=== PATIENT | female | born 2000 | race American Indian/Alaskan Native ===

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

== ENCOUNTER 2020-04-04 06:50 | Inpatient (IN) | payer MEDICAID ==
[2020-04-04] MEDS ORDERED: TERBUTALINE 1 MG/1 ML INJ SUB-Q PRN (07:58)
[2020-04-04] MEDS ORDERED: ONDANSETRON 4 MG/2 ML INJ IV PRN ×2 (07:58→10:29)
[2020-04-04] MEDS ORDERED: ePHEDrine SULFATE 50 MG/1 ML INJ IV PRN ×2 (07:58→10:29)
[2020-04-04] MEDS ORDERED: miSOPROStol 200 MCG TAB PR PRN (07:58)
[2020-04-04] MEDS ORDERED: fentaNYL 100 MCG/2 ML INJ IV PRN (07:58)
[2020-04-04] MEDS ORDERED: LIDOCAINE (2%) 20 MG/1 ML VIAL 20 ML MDV INFILTRATI ONE (07:58)
[2020-04-04] MEDS ORDERED: OXYTOCIN DRIP 30 UNITS/500 ML BAG IV SCH ×2 (08:00)
--- NOTE | 2020-04-04 08:06 | History and Physical Report ---
History of Present Illness Date of examination: 04/04/20 (pt arrived via EMS in active labor; OB care @ [facility]) Chief complaint: worsening contractions History of present illness: MARCELA signed and faxed to [facility]. Records pending. Per pt verbal report: JOSUE 04/08/2020 per U/S on 09/02/19 at [facility]. Pt reports last being seen at [facility] on 02/12/2020. Family Medical Hx- denies Personal Medical Hx- denies Significant other personal and family Hx- denies ETOH/smoking/drug abuse- denies HX STDs- denies Past History Past Medical History: no pertinent history - Obstetrical History Expected Date of Delivery: 04/08/20 Actual Gestation: 39 Week(s) 3 Day(s) : 1 Para: 0 Hx # Term Pregnancies: 0 Number of Pregnancies: 0 Spontaneous Abortions: 0 Induced : 0 Number of Living Children: 0 Medications and Allergies Allergies Allergy/AdvReac Type Severity Reaction Status Date / Time No Known Allergies Allergy Verified 02/28/19 17:45 Home Medications Medication Instructions Recorded Confirmed Last Taken Type No Known Home Medications [No 04/04/20 04/04/20 Unknown History Reported Home Medications] Active Meds: Active Medications Ephedrine Sulfate (Ephedrine Sulfate) 10 mg IV Q2M PRN PRN Reason: Hypotension Fentanyl (Sublimaze) 100 mcg IV Q2H PRN PRN Reason: Pain,Severe (7-10) LABOR PAIN Oxytocin/Sodium Chloride (Pitocin/Ns 30 Unit/500ml) 30 units in 500 mls @ 4 mls/hr IV TITR JESUS; Protocol Lactated Ringer's (Lactated Ringers) 1,000 mls @ 125 mls/hr IV DIRECT JESUS Oxytocin/Sodium Chloride (Pitocin/Ns 30 Unit/500ml) 30 units in 500 mls @ 40 ml s/hr IV TITR JESUS; Protocol Ampicillin Sodium (Ampicillin/Ns 1 Gm/50 Ml) 1 gm in 50 mls @ 100 mls/hr IV Q4HR JESUS; Protocol Ampicillin Sodium (Ampicillin/Ns 2 Gm/100 Ml) 2 gm in 100 mls @ 100 mls/hr IV ONCE ONE; Protocol Stop: 04/04/20 08:57 Lidocaine (Xylocaine 2%) 20 ml INFILTRATI ONCE ONE Stop: 04/04/20 07:59 Methylergonovine Maleate (Methergine) 0.2 mg IM ONCE PRN PRN Reason: Uterine Bleeding Misoprostol (Cytotec) 800 mcg WI ONCE PRN PRN Reason: Uterine Bleeding Ondansetron HCl (Zofran) 4 mg IV Q8H PRN PRN Reason: Nausea And Vomiting Oxytocin (Pitocin) 10 unit IM ONCE PRN PRN Reason: Uterine Bleeding Terbutaline Sulfate (Brethine) 0.25 mg SUB-Q ONCE PRN PRN Reason: Hyperstimulation/Hypertonicity Review of Systems All systems: negative - Vital Signs Vital signs: Vital Signs Temp Pulse Resp BP Pulse Ox 99.3 F 109 H 16 127/74 98 04/04/20 07:23 04/04/20 07:23 04/04/20 07:23 04/04/20 07:23 04/04/20 07:23 Temp Pulse Resp BP Pulse Ox 99.3 F 112 H 16 127/74 99 04/04/20 07:23 04/04/20 07:53 04/04/20 07:23 04/04/20 07:23 04/04/20 07:53 - Physical Exam Breasts: Positive: deferred Cardiovascular: Regular rate, Normal S1, Normal S2 Lungs: Positive: Clear to auscultation, Normal air movement Abdomen: Positive: normal appearance, soft, normal bowel sounds. Negative: distention, tenderness Genitourinary (Female): Positive: normal external genitalia, normal perenium Vulva: both: normal Vagina: Positive: normal moisture. Negative: discharge Cervix: Negative: lesion, discharge Uterus: Positive: normal size, normal contour Adnexa: both: normal Anus/Rectum: Positive: normal perianal skin, heme negative. Negative: rectal mass, hemorrhoids Extremities: Positive: normal Deep Tendon Reflex Grade: Normal +2 - Obstetrical FHR: auscultation normal, category 1 Uterine Contraction Monitor Mode: External Cervical Dilatation: 5 Cervical Effacement Percentage: 100 station: -1 Uterine Contraction Pattern: Regular Uterine Contraction Intensity: Moderate Results Result Diagrams: 04/04/20 07:58 All other labs normal. OB labs ordered, will treat for unknown GBS Assessment and Plan - Patient Problems (1) Insufficient care in third trimester Onset Date: ~04/04/20 Current Visit: Yes Status: Acute Plan to address problem: records requested from [facility]. all OB labs ordered. GBS status UNK, will tx per p rotocol. all orders in EMR. anticipate . Dr Lopez aware of admission (2) 39 weeks gestation of Onset Date: ~04/04/20 Current Visit: Yes Status: Acute
[2020-04-04] MEDS ORDERED: METHYLERGONOVINE MALEATE 0.2 MG/ML VIAL IM PRN (08:11)
[2020-04-04] MEDS ORDERED: OXYTOCIN 10 UNIT/1 ML INJ IM PRN (08:11)
[2020-04-04] MEDS ORDERED: AMPICILLIN/NS 2 GM/100 ML 2 GM/100 ML BAG IV ONE (08:30)
[2020-04-04 08:43] LABS: Hematocrit 35.8 % (30.3-42.9); Hemoglobin 11.5 gm/dl (10.1-14.3); Mean Corpuscular HGB Conc 32 % (30-34); Mean Corpuscular Volume 82 fl (79-97); Platelet Count 185 K/mm3 (140-440); Red Blood Count 4.38 M/mm3 (3.65-5.03); Red Cell Distribution Width 13.9 % (13.2-15.2)
[2020-04-04] MEDS: LACTATED RINGERS 1,000 ML IV SCH ×3 (09:12→16:50)
[2020-04-04] MEDS ORDERED: diphenhydrAMINE 50 MG/ML VIAL IV PRN (10:29)
[2020-04-04] MEDS ORDERED: NALOXONE 2 MG/2 ML INJ IV PRN (10:29)
[2020-04-04] MEDS ORDERED: NalbUPHINE 10 MG/1 ML INJ IV PRN (10:29)
--- NOTE | 2020-04-04 10:31 | Anesthesia Consultation ---
Anesthesia Consult and Med Hx Date of service: 04/04/20 - Airway Anesthetic Teeth Evaluation: Good ROM Head & Neck: Adequate Mental/Hyoid Distance: Adequate Mallampati Class: Class II Intubation Access Assessment: Probably Good - Pulmonary Exam CTA: Yes - Cardiac Exam Cardiac Exam: RRR - Pre-Operative Health Status ASA Pre-Surgery Classification: ASA2 Proposed Anesthetic Plan: Epidural - Pulmonary Hx Smoking: No Hx Asthma: No COPD: No Hx Pneumonia: No Hx Sleep Apnea: No - Cardiovascular System Hx Hypertension: No - Central Nervous System Hx Seizures: No Hx Psychiatric Problems: No - Gastrointestinal Hx Gastroesophageal Reflux Disease: No - Endocrine Hx Renal Disease: No Hx End Stage Renal Disease: No Hx Hypothyroidism: No Hx Hyperthyroidism: No - Hematic Hx Anemia: No Hx Sickle Cell Disease: No - Other Systems Hx Alcohol Use: No
--- NOTE | 2020-04-04 10:52 | Progress Note ---
Labor Epidural - Labor Epidural Start Time: 10:36 Stop Time: 10:47 Performed by:: ROLF CORMIER Procedure: Patient is requesting a laboring epidural for laboring pain. Patient IDed, H&P reviewed, all questions and concerns were answered, and consent was signed. Timeout was performed at bedside. Patient in sitting position. Sterile prep and drape was performed. 3ml of 1% lidocaine skin wheal at L[3]- L [4]. 18- gauge Touhy epidural needle was advanced to loss of resistance with air technique. Negative CSF negative blood. Epidural catheter advanced to [12] centimeters. [-] Aspiration [-] test dose. Sterile dressing applied. Patient tolerated procedure.
[2020-04-04] MEDS ORDERED: fentaNYL-BUPIV 2 MCG/ML-0.125% 200 MCG/100 ML BAG EPIDURAL SCH (11:00)
[2020-04-04] MEDS: AMPICILLIN/NS 1 GM/50 ML 1 GM/50 ML BAG IV SCH ×2 (12:13→15:53)
[2020-04-04 13:19] LABS: Hepatitis C Virus Antibody Non-Reactive (NonReactive)
--- NOTE | 2020-04-04 13:56 | Progress Note ---
Assessment and Plan pt resting comfortably s/p epidural, FHT's CAT 1. SVE 5/100/0, AROM no fluid seen, internal monitors placed, bloody show noted on exam, RN to start Pitocin as ordered per protocol, Dr. Lopez updated. anticipate - Patient Problems (1) Insufficient care in third trimester Onset Date: ~04/04/20 Current Visit: Yes Status: Acute Plan to address problem: records requested from [facility]. all OB labs ordered. GBS status UNK- will tx per protocol. all orders in EMR. anticipate . Dr Lopez aware of admission (2) 39 weeks gestation of Onset Date: ~04/04/20 Current Visit: Yes Status: Acute Subjective - Subjective Date of service: 04/04/20 Principal diagnosis: Active Labor @ 39.3 EGA, Insufficient Care Interval history: MARCELA signed and faxed to [facility]. Records pending. Per pt verbal report: JOSUE 04/08/2020 per U/S on 09/02/19 at [facility]. Pt reports last being seen at [facility] on 02/12/2020. Family Medical Hx- denies Personal Medical Hx- denies Significant other personal and family Hx- denies ETOH/smoking/drug abuse- denies HX STDs- denies Patient reports: no new complaints Objective - Vital Signs Vital Signs: Vital Signs - 12hr 04/04/20 04/04/20 04/04/20 07:23 07:28 07:33 Temperature 99.3 F Pulse Rate 109 H 119 H 103 H Respiratory 16 Rate Blood Pressure 127/74 Blood Pressure 127/74 [Left] O2 Sat by Pulse 98 99 99 Oximetry 04/04/20 04/04/20 04/04/20 07:38 07:43 07:48 Temperature Pulse Rate 112 H 102 H 108 H Respiratory Rate Blood Pressure Blood Pressure [Left] O2 Sat by Pulse 99 98 99 Oximetry 04/04/20 04/04/20 04/04/20 07:53 08:09 08:14 Temperature Pulse Rate 112 H 104 H 101 H Respiratory Rate Blood Pressure Blood Pressure [Left] O2 Sat by Pulse 99 99 99 Oximetry 04/04/20 04/04/20 04/04/20 08:19 08:24 08:29 Temperature Pulse Rate 101 H 94 H 96 H Respiratory Rate Blood Pressure Blood Pressure [Left] O2 Sat by Pulse 100 99 99 Oximetry 04/04/20 04/04/20 04/04/20 09:22 09:26 09:30 Temperature 98.9 F Pulse Rate 110 H 96 H Respiratory 16 Rate Blood Pressure 141/89 Blood Pressure [Left] O2 Sat by Pulse 99 Oximetry 04/04/20 04/04/20 04/04/20 09:37 09:42 09:47 Temperature Pulse Rate 116 H 101 H 105 H Respiratory Rate Blood Pressure Blood Pressure [Left] O2 Sat by Pulse 99 99 98 Oximetry 04/04/20 04/04/20 04/04/20 09:51 09:52 09:57 Temperature Pulse Rate 107 H 125 H 96 H Respiratory Rate Blood Pressure 136/84 Blood Pressure [Left] O2 Sat by Pulse 99 99 Oximetry 04/04/20 04/04/20 04/04/20 10:02 10:07 10:12 Temperature Pulse Rate 105 H 115 H 103 H Respiratory Rate Blood Pressure Blood Pressure [Left] O2 Sat by Pulse 99 99 99 Oximetry 04/04/20 04/04/20 04/04/20 10:17 10:33 10:38 Temperature Pulse Rate 113 H 118 H 113 H Respiratory Rate Blood Pressure Blood Pressure [Left] O2 Sat by Pulse 98 0 L 99 Oximetry 04/04/20 04/04/20 04/04/20 10:41 10:43 10:45 Temperature Pulse Rate 106 H 95 H 101 H Respiratory Rate Blood Pressure 138/73 134/78 126/71 Blood Pressure [Left] O2 Sat by Pulse 99 Oximetry 04/04/20 04/04/20 04/04/20 10:47 10:48 10:50 Temperature Pulse Rate 104 H 109 H 95 H Respiratory Rate Blood Pressure 127/69 138/79 Blood Pressure [Left] O2 Sat by Pulse 99 Oximetry 04/04/20 04/04/20 04/04/20 10:51 10:53 10:55 Temperature Pulse Rate 101 H 92 H 100 H Respiratory Rate Blood Pressure 136/78 130/65 135/63 Blood Pressure [Left] O2 Sat by Pulse 99 Oximetry 04/04/20 04/04/20 04/04/20 10:57 10:58 10:59 Temperature Pulse Rate 89 95 H 90 Respiratory Rate Blood Pressure 124/60 122/58 Blood Pressure [Left] O2 Sat by Pulse 99 Oximetry 04/04/20 04/04/20 04/04/20 11:01 11:03 11:05 Temperature Pulse Rate 90 93 H 93 H Respiratory Rate Blood Pressure 121/58 122/58 124/59 Blood Pressure [Left] O2 Sat by Pulse 99 Oximetry 04/04/20 04/04/20 04/04/20 11:07 11:08 11:09 Temperature Pulse Rate 90 93 H 90 Respiratory Rate Blood Pressure 116/57 119/61 Blood Pressure [Left] O2 Sat by Pulse 98 Oximetry 04/04/20 04/04/20 04/04/20 11:11 11:13 11:15 Temperature Pulse Rate 91 H 97 H 95 H Respiratory Rate Blood Pressure 116/57 115/57 119/58 Blood Pressure [Left] O2 Sat by Pulse 98 Oximetry 04/04/20 04/04/20 04/04/20 11:17 11:18 11:19 Temperature Pulse Rate 99 H 93 H 96 H Respiratory Rate Blood Pressure 115/57 119/59 Blood Pressure [Left] O2 Sat by Pulse 98 Oximetry 04/04/20 04/04/20 04/04/20 11:21 11:23 11:25 Temperature Pulse Rate 90 104 H 99 H Respiratory Rate Blood Pressure 119/59 110/55 113/55 Blood Pressure [Left] O2 Sat by Pulse 98 Oximetry 04/04/20 04/04/20 04/04/20 11:27 11:28 11:29 Temperature Pulse Rate 98 H 103 H 98 H Respiratory Rate Blood Pressure 114/57 123/60 Blood Pressure [Left] O2 Sat by Pulse 98 Oximetry 04/04/20 04/04/20 04/04/20 11:33 11:38 11:43 Temperature Pulse Rate 101 H 94 H 92 H Respiratory Rate Blood Pressure Blood Pressure [Left] O2 Sat by Pulse 98 98 100 Oximetry 04/04/20 04/04/20 04/04/20 11:48 11:53 11:58 Temperature Pulse Rate 86 87 91 H Respiratory Rate Blood Pressure Blood Pressure [Left] O2 Sat by Pulse 100 100 100 Oximetry 04/04/20 04/04/20 04/04/20 11:59 12:03 12:08 Temperature Pulse Rate 87 91 H 89 Respiratory Rate Blood Pressure 98/54 Blood Pressure [Left] O2 Sat by Pulse 100 100 Oximetry 04/04/20 04/04/20 04/04/20 12:13 12:17 12:18 Temperature Pulse Rate 96 H 89 94 H Respiratory Rate Blood Pressure 111/60 Blood Pressure [Left] O2 Sat by Pulse 100 100 Oximetry 04/04/20 04/04/20 04/04/20 12:23 12:28 12:30 Temperature 98.9 F Pulse Rate 95 H 96 H 89 Respiratory 14 Rate Blood Pressure 117/63 Blood Pressure [Left] O2 Sat by Pulse 100 100 Oximetry 04/04/20 04/04/20 04/04/20 12:33 12:38 12:43 Temperature Pulse Rate 91 H 96 H 100 H Respiratory Rate Blood Pressure Blood Pressure [Left] O2 Sat by Pulse 100 100 100 Oximetry 04/04/20 04/04/20 04/04/20 12:48 12:53 12:58 Temperature Pulse Rate 103 H 96 H 92 H Respiratory Rate Blood Pressure Blood Pressure [Left] O2 Sat by Pulse 100 100 100 Oximetry 04/04/20 04/04/20 04/04/20 13:01 13:03 13:08 Temperature Pulse Rate 96 H 95 H 103 H Respiratory Rate Blood Pressure 127/64 Blood Pressure [Left] O2 Sat by Pulse 100 100 Oximetry 04/04/20 04/04/20 04/04/20 13:13 13:18 13:23 Temperature Pulse Rate 92 H 93 H 99 H Respiratory Rate Blood Pressure Blood Pressure [Left] O2 Sat by Pulse 100 100 100 Oximetry 04/04/20 04/04/20 04/04/20 13:28 13:30 13:33 Temperature Pulse Rate 95 H 100 H 94 H Respiratory Rate Blood Pressure 132/73 Blood Pressure [Left] O2 Sat by Pulse 100 100 Oximetry 04/04/20 13:38 Temperature Pulse Rate 102 H Respiratory Rate Blood Pressure Blood Pressure [Left] O2 Sat by Pulse 100 Oximetry - Exam Cardiovascular: Regular rate Lungs: Normal air movement Abdomen: Present: normal appearance, soft. Absent: distention, tenderness Uterus: Present: normal FHR: auscultation normal Uterine Contraction Monitor Mode: Internal Cervical Dilatation: 5 Cervical Effacement Percentage: 100 station: -1 Uterine Contraction Pattern: Regular Extremities: normal - Labs Labs: Abnormal Labs 04/04/20 07:58 WBC 18.2 H MCH 26 L Laboratory Results - last 24 hr 04/04/20 04/04/20 04/04/20 07:58 08:10 Unknown WBC 18.2 H RBC 4.38 Hgb 11.5 Hct 35.8 MCV 82 MCH 26 L MCHC 32 RDW 13.9 Plt Count 185 Syphilis IgG Antibody Nonreactive Hep Bs Antigen Hepatitis C Antibody Non-reactive HIV 1&2 Antibody Rapid HIV P24 Antigen Rubella IgG Antibody Immune Blood Type B POSITIVE Antibody Screen Negative 04/04/20 04/04/20 Unknown Unknown WBC RBC Hgb Hct MCV MCH MCHC RDW Plt Count Syphilis IgG Antibody Hep Bs Antigen Non-reactive Hepatitis C Antibody HIV 1&2 Antibody Rapid Non react HIV P24 Antigen Non react Rubella IgG Antibody Blood Type Antibody Screen
[2020-04-04 16:17] LABS: Bilirubin,Urine NEG (Negative); Blood,Urine MOD (Negative); Color,Urine Yellow (Yellow); Mucus,Urine FEW /HPF; Urobilinogen,Urine < 2.0 mg/dL (<2.0)
[2020-04-04 16:30] LABS: Amphetamine Screen,Urine PRESUMPTIVE NEGATIVE; Benzodiazepines Screen,Urine PRESUMPTIVE NEGATIVE; Cannabinoid Screen,Urine PRESUMPTIVE NEGATIVE; Cocaine Screen,Urine PRESUMPTIVE NEGATIVE; Methadone Screen,Urine PRESUMPTIVE NEGATIVE; Opiate Screen,Urine PRESUMPTIVE NEGATIVE
[2020-04-04] MEDS ORDERED: MAGNESIUM HYDROXIDE (MOM) ORAL LIQD UDC PO PRN (18:31)
[2020-04-04] MEDS ORDERED: diphenhydrAMINE 25 MG CAP PO PRN (18:31)
[2020-04-04] MEDS ORDERED: LANOLIN/ZINC/DIMETHICONE (LANSINOH) 7 GM TP PRN (18:31)
[2020-04-04] MEDS ORDERED: WITCH HAZEL/ GLYCERIN PAD TP PRN (18:31)
[2020-04-04] MEDS ORDERED: PROMETHAZINE 25 MG TAB PO PRN (18:31)
--- NOTE | 2020-04-04 18:35 | Procedure Note ---
OB Delivery Note - Delivery Date of Delivery: 04/04/20 Seat Coverer: RE DAMIAN (Naila) Estimated blood loss: 500cc - Vaginal Delivery presentation: vertex Delivery position: OA Intrapartum events: no care (limited; did have some care with [facility]), mult.variable deceleratio Delivery augmentation: pitocin Delivery monitor: internal FHT, internal uterine Route of delivery: Delivery placenta: spontaneous Delivery cord: nuchal cord, 3 umbilical vessels Episiotomy: none Delivery laceration: none Anesthesia: epidural Delivery comments: CHEY present. Counts correct X 2 90min second stage good maternal effort. live born male OA over intact perineum. CAN X 1 reduced. Cord clamped and cut. Placenta delivered complete and intact, 3 vessel cord. Pit IVFs. Uterus boggy Several moderate size clots removed. Methergine IM given 7/9, EBL 500, Wgt 7-5 Mom and baby remain LDR stable. FF @ umb Lochia small with occasional clot - Infant A at 1 minute: 7 at 5 minutes: 9 Infant Gender: Male ([place] wgt 7-5)
[2020-04-04] MEDS: IBUPROFEN 600 MG TAB PO SCH (19:44)
[2020-04-04 20:33] LABS: Alanine Aminotransferase 7 units/L (7-56); Uric Acid 4.4 mg/dL (3.5-7.6)
[2020-04-04] MEDS ORDERED: METHYLERGONOVINE MALEATE 0.2 MG/ML VIAL IM ONE (21:47)
[2020-04-05] MEDS ORDERED: IBUPROFEN 600 MG TAB PO ONE (03:00)
--- NOTE | 2020-04-05 17:01 | Post Anesthesia Evaluation ---
- Post Anesthesia Evaluation Patient Participated: Yes Airway Patent: Yes Stable Respiratory Function: Yes Nausea/Vomiting: No Temp > 96.8F: Yes Pain Manageable: Yes Adequeate Hydration: Yes Anesthesia Complications: No Block Receding Appropriately: Yes Patient on Ventilator: No
--- NOTE | 2020-04-05 22:21 | Event Note ---
Date: 04/05/20 discharge ordered on paper during computer downtime, patient has not been discharged home. RN called and informed of ordered d/c, due to late hour, patient will go home in AM.
[2020-04-06] MEDS: IBUPROFEN 600 MG TAB PO SCH (00:41)
[2020-04-06 04:08] LABS: Hematocrit 26.2 % (30.3-42.9); Hemoglobin 8.5 gm/dl (10.1-14.3)
[2020-04-06 13:11] VITALS: BP 118/75
== END 2020-04-06 13:45 | disposition home or self-care (01) | DRG 775 ==
LOC: TRG 06:50 → APU 06:51 → TRG 07:58 → LD 07:59 → OB 21:36
PROVIDERS: ADMIT Obstetrics & Gynecology; ATTEND Obstetrics & Gynecology
PROC: 10E0XZZ Delivery of Products of Conception, External Approach (ICD-10-PCS; principal; 2020-04-04)
PROC: 3E0R3BZ Introduction of Anesthetic Agent into Spinal Canal, Percutaneous Approach (ICD-10-PCS; 2020-04-04)
PROC: 00HU33Z Insertion of Infusion Device into Spinal Canal, Percutaneous Approach (ICD-10-PCS; 2020-04-04)
DX: O69.81X0 Labor and delivery complicated by cord around neck, without compression, not applicable or unspecified (principal); Z3A.39 39 weeks gestation of pregnancy; Z37.0 Single live birth; Z20.828 Contact with and (suspected) exposure to other viral communicable diseases; O76 Abnormality in fetal heart rate and rhythm complicating labor and delivery
CPT/HCPCS: 36415; 80307; 81001; 82565; 83615; 84450; 84460; 84550; 85014; 85018; 85027; 86592; 86706; 86762; 86803; 86850; 86900; 86901; 87806; G0378; J0290; J2210; J2590; J7120; U0003